=== PATIENT | female | born 1960 | race African-American/Black ===

== ENCOUNTER 2017-03-24 10:10 | Emergency (ER) | payer BC, OTHER ==
[2017-03-24 10:24] VITALS: BP 152/69; PULSE 61; TEMP 98.3; BMI 21.6
--- NOTE | 2017-03-24 11:27 | PDOC ---
History of Present Illness - General Chief Complaint: Injury Stated Complaint: LT FOOT PAIN Time Seen by Provider: 03/24/17 10:42 History Source: Patient Exam Limitations: No Limitations - History of Present Illness Initial Comments: 03/24/17 11:10 CHIEF COMPLAINT: Pain to dorsum of left foot HISTORY OF PRESENT ILLNESS: Patient is a 56-year-old female, no significant medical history currently on no medication presents for left foot pain. Patient reports 2 weeks ago she dropped a small safe on her foot since with pain. There is no erythema, edema or deformity. Occurred: reports: other (2 weeks ago) Severity: Yes: mild Lower Extremity Pain Location: left: foot Lower Ext. Injury Location - Specific Injury Location Foot: left foot pain Extremity Pain Location - Extremity Pain Location Extremity Pain Locations: left: foot Past History - Past Medical History Allergies/Adverse Reactions: Allergies Allergy/AdvReac Type Severity Reaction Status Date / Time No Known Allergies Allergy Verified 03/24/17 10:20 Home Medications: Ambulatory Orders Ibuprofen [Motrin -] 600 mg PO QID #28 tablet 03/24/17 COPD: No Other medical history: DENIES. - Suicide/Smoking/Psychosocial Hx Smoking History: Current every day smoker Have you smoked in the past 12 months: Yes Number of Cigarettes Smoked Daily: 10 Information on smoking cessation initiated: No Hx Alcohol Use: No Review of Systems - Review of Systems Constitutional: No: Symptoms Reported Respiratory: No: Symptoms reported Cardiac (ROS): No: Symptoms Reported ABD/GI: No: Symptoms Reported Musculoskeletal: No: Joint Pain, Joint Swelling, Muscle Pain, Muscle Weakness, Joint Stiffness Integumentary: No: Symptoms Reported, Bruising, Erythema Neurological: No: Symptoms reported, Paresthesia, Tingling, Tremors All Other Systems: Reviewed and Negative *Physical Exam - Vital Signs Last Vital Signs Temp Pulse Resp BP Pulse Ox 98.3 F 61 19 152/69 98 03/24/17 10:21 03/24/17 10:21 03/24/17 10:21 03/24/17 10:21 03/24/17 10:21 - Physical Exam General Appearance: Yes: Appropriately Dressed. No: Apparent Distress Neck: negative: Tender lateral, Tender midline Respiratory/Chest: positive: Lungs Clear, Normal Breath Sounds. negative: Respiratory Distress, Accessory Muscle Use Cardiovascular: positive: Regular Rhythm, Regular Rate Musculoskeletal: positive: Normal Inspection. negative: Decreased Range of Motion, Muscle Spasm, Vertebral Tenderness Extremity: positive: Normal Capillary Refill, Normal Inspection, Normal Range of Motion, Tender (to dorsum of the left foot. ). negative: Pedal Edema, Swelling, Erythema, Inflammation Integumentary: positive: Normal Color, Dry. negative: Erythema, Swelling, Ecchymosis, Bruising Neurologic: positive: Alert, Normal Mood/Affect, Normal Response, Motor Strength 5/5 ED Treatment Course - RADIOLOGY Radiology Studies Ordered: Category Date Time Status ANKLE & FOOT-LEFT* [RAD] Stat Radiology 03/24/17 10:41 Completed Medical Decision Making - Medical Decision Making 03/24/17 11:27 A/P: Patient with injury to foot 2 weeks ago still with pain x-ray demonstrated no acute fracture dislocation I have placed patient in Taurus wrap, will DC patient on Motrin supportive shoes, follow-up with orthopedics if pain persists I discussed the physical exam findings, ancillary test results and final diagnoses with the patient. I answered all of the patient's questions. The patient was satisfied with the care received and felt comfortable with the discharge plan and treatment plan. The patient will call to arrange follow-up and will return to the Emergency Department with any new, persistent or worsening symptoms. *DC/Admit/Observation/Transfer Diagnosis at time of Disposition: Foot injury Qualifiers: Encounter type: initial encounter Laterality: left Qualified Code(s): S99.922A - Unspecified injury of left foot, initial encounter - Discharge Dispostion Disposition: HOME Condition at time of disposition: Good Admit: No - Prescriptions Prescriptions: Ibuprofen [Motrin -] 600 mg PO QID #28 tablet - Referrals Referrals: Duncan Colbert MD [Staff Physician] - - Patient Instructions Additional Instructions: Ic e to foot Motrin for pain Well fitting shoes. Follow up with ortho if pain persists. - Post Discharge Activity
== END 2017-03-24 11:31 | disposition home or self-care (01) ==
LOC: JERFT 10:10
DX: S99.922A Unspecified injury of left foot, initial encounter (principal); W22.8XXA Striking against or struck by other objects, initial encounter; Y93.89 Activity, other specified; Y92.9 Unspecified place or not applicable; F17.210 Nicotine dependence, cigarettes, uncomplicated
CPT/HCPCS: 73610-TC-LT; 73630-TC-LT; 99281-25

== ENCOUNTER 2017-07-18 11:08 | Emergency (ER) | payer BC, OTHER ==
[2017-07-18 11:33] VITALS: TEMP 98.3; BMI 21.4
--- NOTE | 2017-07-18 12:43 | PDOC ---
History of Present Illness - General History Source: Patient Exam Limitations: No Limitations - History of Present Illness Initial Comments: 07/18/17 13:32 The patient is a 57 year old female, with a significant past medical history of anxiety, who presents to the emergency department with lightheadedness, chest pain, dizziness that started last night. She reports her chest pain has mostly resolved by ER arrival. She reports her chest pain last night was made worse with exertion, movement of her arms, and palpation. Patient states she's had bilateral numbness and weakness in her arms and legs, but she has been able to walk. She endorses subjective fevers, chills, nausea. Patient complains of pain in multiple joints, including her hips legs, shoulders and back. Denies trauma. The patient ranks her pain a 7/10 in pain intensity. She denies recent nausea, vomit, diarrhea or constipation. She denies recent dysuria, frequency, urgency or hematuria. She denies recent shortness of breath. Allergies: NKA Past surgical history: None reported. Social history: Current Smoker. Denies EtOH use and recreational drug use. <Zackery Davila - Last Filed: 07/18/17 13:34> <Tariq Maxwell - Last Filed: 07/18/17 17:55> - General Chief Complaint: Lightheaded Stated Complaint: DIZZINESS,HIP PAIN Time Seen by Provider: 07/18/17 12:08 Past History <Zackery Davila - Last Filed: 07/18/17 13:34> - Past Medical History COPD: No Other medical history: DENIES. - Suicide/Smoking/Psychosocial Hx Smoking History: Current every day smoker Have you smoked in the past 12 months: Yes Number of Cigarettes Smoked Daily: 10 Information on smoking cessation initiated: No Hx Alcohol Use: No <Tariq Maxwell - Last Filed: 07/18/17 17:55> - Past Medical History Allergies/Adverse Reactions: Allergies Allergy/AdvReac Type Severity Reaction Status Date / Time No Known Allergies Allergy Verified 07/18/17 12:03 Home Medications: Ambulatory Orders NK [No Known Home Medication] 07/18/17 Review of Systems - Review of Systems Able to Perform ROS?: Yes Comments:: 07/18/17 13:32 A complete review of 10 out of 10 review of systems is taken and is negative apart from what is previously mentioned below and in the HPI. <Zackery Davila - Last Filed: 07/18/17 13:34> *Physical Exam - Vital Signs Last Vital Signs Temp Pulse Resp BP Pulse Ox 98.3 F 84 20 149/79 99 07/18/17 11:29 07/18/17 11:29 07/18/17 11:29 07/18/17 11:29 07/18/17 12:00 - Physical Exam Comments: 07/18/17 13:33 Vitals: Triage Vital signs reviewed General Appearance: no acute distress, well nourished well developed, Head: Atraumatic, normocephalic Neck: Supple;No Nuchal rigidity Chest Wall: Nontender Cardiac: Regular rate and rhythm, no murmurs, no rubs, no gallops, Lungs: Clear to auscultation bilateral, good air movement bilaterally, Abdomen: Soft, nondistended, normal bowel sounds, nontender to palpation Extremities: Full range of motion to all extremities, no cyanosis, clubbing, or edema Skin: Warm and dry, no rashes or lesions, no petechiae Neuro: AOX3; Cranial Nerves 2-12 grossly c intact, Strength intact to all extremities, Sensation intact to all extremities, gait normal Psych: normal mood, normal affect <Zackery Davila - Last Filed: 07/18/17 13:34> - Vital Signs Last Vital Signs Temp Pulse Resp BP Pulse Ox 98.3 F 84 20 149/79 99 07/18/17 11:29 07/18/17 11:29 07/18/17 11:29 07/18/17 11:29 07/18/17 12:00 <Tariq Maxwell - Last Filed: 07/18/17 17:55> ED Treatment Course - LABORATORY CBC & Chemistry Diagram: 07/18/17 13:25 07/18/17 13:25 <Zackery Davila - Last Filed: 07/18/17 13:34> - LABORATORY CBC & Chemistry Diagram: 07/18/17 13:25 07/18/17 13:25 <Tariq Maxwell - Last Filed: 07/18/17 17:55> Medical Decision Making - Medical Decision Making 07/18/17 13:33 The patient is a 57 year old female, with a significant past medical history of anxiety, who presents to the emergency department with lightheadedness, chest pain, dizziness that started last night. She reports her chest pain has mostly resolved by ER arrival. Plan: 1.CBC 2.Cardiac profile 3.PT/INR 4.UA 5.EKG 6.Chest X-Ray <Zackery Davila - Last Filed: 07/18/17 13:34> - Medical Decision Making Atypical chest discomfort heart score 3 nonischemic EKG troponin negative times one given that pain was yesterday her risk of MACE is less than 1.6% Patient advised follow-up with her primary care provider in 1-2 days she has a nonfocal neurologic examination Findings, need follow-up, strict return instructions discussed patient. Pt. seen with resident Dr. Pinto <Tariq Maxwell - Last Filed: 07/18/17 17:55> *DC/Admit/Observation/Transfer - Attestations Scribe Attestion: 07/18/17 13:33 Documentation prepared by Zackery Davila, acting as director medical for Tariq Maxwell MD. <Zackery Davila - Last Filed: 07/18/17 13:34> <Tariq Maxwell - Last Filed: 07/18/17 17:55> Diagnosis at time of Disposition: Atypical chest pain - Discharge Dispostion Disposition: HOME Condition at time of disposition: Good - Patient Instructions Printed Discharge Instructions: DI for Atypical Chest Pain Additional Instructions: Please return if you have any new, worsening or concerning symptoms. Please follow up with your primary care physician this week. - Post Discharge Activity Forms/Work/School Notes: Back to Work
--- NOTE | 2017-07-18 13:09 | PDOC ---
History of Present Illness - General Chief Complaint: Lightheaded Stated Complaint: DIZZINESS,HIP PAIN Time Seen by Provider: 07/18/17 12:08 History Source: Patient Exam Limitations: No Limitations - History of Present Illness Initial Comments: 07/18/17 13:01 Patient is a 57F with history of tobacco abuse here today complaining of chest pain with associated dizziness that started last night. She states that her chest pain has resolved now, but her chest pain was worsened with exertion, movement of her arms, and palpation. It was relieved with rest. Patient states she's had bilateral numbness and weakness in her arms and legs, but she has been able to walk. She endorses subjective fevers, chills, nausea. Denies vomiting. Denies leg swelling, history of blood clots. Patient complains of pain in multiple joints, including her hips legs, shoulders and back. Denies trauma. Past History - Past Medical History Allergies/Adverse Reactions: Allergies Allergy/AdvReac Type Severity Reaction Status Date / Time No Known Allergies Allergy Verified 07/18/17 12:03 Home Medications: Ambulatory Orders NK [No Known Home Medication] 07/18/17 COPD: No Other medical history: DENIES. - Suicide/Smoking/Psychosocial Hx Smoking History: Current every day smoker Have you smoked in the past 12 months: Yes Number of Cigarettes Smoked Daily: 10 Information on smoking cessation initiated: No Hx Alcohol Use: No Review of Systems - Review of Systems Comments:: 07/18/17 13:06 GENERAL/CONSTITUTIONAL: No fever or chills. No weakness. HEAD, EYES, EARS, NOSE AND THROAT: No change in vision. No sore throat. CARDIOVASCULAR: Positive for chest pain and shortness of breath RESPIRATORY: Positive for cough. Negative for wheezing, or hemoptysis. GASTROINTESTINAL: Positive for nausea. Negative for vomiting, diarrhea or constipation. GENITOURINARY: No dysuria, frequency, or change in urination. MUSCULOSKELETAL: Positive for diffuse joint or muscle swelling or pain. Positive for lower back pain. SKIN: No rash NEUROLOGIC: No headache, vertigo, loss of consciousness, or change in strength/ sensation. ENDOCRINE: No increased thirst. No abnormal weight change HEMATOLOGIC/LYMPHATIC: No anemia, easy bleeding, or history of blood clots. ALLERGIC/IMMUNOLOGIC: No hives or skin allergy. *Physical Exam - Vital Signs Last Vital Signs Temp Pulse Resp BP Pulse Ox 98.3 F 84 20 149/79 99 07/18/17 11:29 07/18/17 11:29 07/18/17 11:29 07/18/17 11:29 07/18/17 12:00 - Physical Exam Comments: 07/18/17 13:10 GENERAL: Awake, alert, and fully oriented, in no acute distress HEAD: No signs of trauma, normocephalic, atraumatic EYES: PERRLA, EOMI, sclera anicteric, conjunctiva clear ENT: Auricles normal inspection, hearing grossly normal, nares patent, oropharynx clear without exudates. Moist mucosa NECK: Normal ROM, supple, no lymphadenopathy, JVD, or masses LUNGS: No distress, speaks full sentences, clear to auscultation bilaterally HEART: Regular rate and rhythm, normal S1 and S2, no murmurs, rubs or gallops, peripheral pulses normal and equal bilaterally. EXTREMITIES: Normal inspection, Normal range of motion, no edema. No clubbing or cyanosis. NEUROLOGICAL: Cranial nerves II through XII grossly intact. Normal speech, normal gait, no focal sensorimotor deficits SKIN: Warm, Dry, normal turgor, no rashes or lesions noted. Heart Score/ECG Review - History History: Slightly suspicious - Electrocardiogram EKG: Normal - Age Age: 45-65 - Risk Factors Risk Factors Heart Score: Yes Smoking History Based on the list above the patient has:: 1-2 risk factors - Troponin Troponin: </= normal limit - Score Heart Score - Total: 2 ED Treatment Course - LABORATORY CBC & Chemistry Diagram: 07/18/17 13:25 07/18/17 13:25 - RADIOLOGY Radiology Studies Ordered: Category Date Time Status CHEST PA & LAT [RAD] Stat Radiology 07/18/17 12:34 Ordered Medical Decision Making - Medical Decision Making 07/18/17 13:10 Patient is 57F with history of tobacco abuse here today complaining of chest pain. Vital signs stable and normal. Chest pain started last night, now resolved. Story is atypical. Will evaluate with cbc, cmp, trop, ekg, pt/inr, cxr , ua. EKG shows normal sinus rhythm with normal rate. No st elevations/depressions. No significant t wave abnormalities. Normal QRS/VA/QTc intervals. 07/18/17 14:37 Laboratory Tests 03/07/18/17 07/18/17 13:25 13:25 13:25 WBC 6.7 D Hgb 13.3 Hct 39.8 Plt Count 220 D INR 1.12 BUN 15 Creatinine 0.7 Creat Clearance w eGFR > 60 Troponin I < 0.02 CBC normal, CMP reassuring. INR normal. Troponin undetectable. 07/18/17 14:56 UA negative. Will discharge with return precautions and PCP follow up. 07/18/17 15:04 Patient now complaining of bilateral leg numbess from hip to knee, but ambulatory without pain and has some sensation. Asking for work note. Discharged with return precautions. *DC/Admit/Observation/Transfer Diagnosis at time of Disposition: Atypical chest pain - Discharge Dispostion Disposition: HOME Condition at time of disposition: Good Admit: No - Referrals - Patient Instructions Printed Discharge Instructions: DI for Atypical Chest Pain Additional Instructions: Please return if you have any new, worsening or concerning symptoms. Please follow up with your primary care physician this week. - Post Discharge Activity Forms/Work/School Notes: Back to Work
[2017-07-18 13:37] LABS: BASO % 0.8 % (0-2.0); EOS % 0.2 % (0-4.5); HEMATOCRIT 39.8 % (32.4-45.2); HEMOGLOBIN 13.3 GM/dL (10.7-15.3); LYMPH % 40.9 % (8-40); MCH 30.6 pg (25.7-33.7); MCHC 33.4 g/dl (32.0-36.0); MEAN CELL VOLUME 91.4 fl (80-96); MEAN PLT VOLUME 8.4 fl (7.5-11.1); MONO % 11.7 % (3.8-10.2); NEUT % 46.4 % (42.8-82.8); PLATELET COUNT 220 K/MM3 (134-434); RBC 4.35 M/mm3 (3.60-5.2); RDW 12.9 % (11.6-15.6); WHITE BLOOD COUNT 6.7 K/mm3 (4.0-10.0)
[2017-07-18 13:50] LABS: INR 1.12 (0.82-1.09); PROTHROMBIN TIME (PATIENT) 12.7 SEC (9.98-11.88)
[2017-07-18 13:58] LABS: ANION GAP 8 (8-16); BILIRUBIN,TOTAL 0.5 mg/dL (0.2-1.0); BLOOD UREA NITROGEN 15 mg/dL (7-18); CALCIUM 9.1 mg/dL (8.5-10.1); CHLORIDE 104 mmol/L (98-107); CO2 30 mmol/L (21-32); CREATININE 0.7 mg/dL (0.55-1.02); GLUCOSE,RANDOM 87 mg/dL (74-106); SGPT/ALT 20 U/L (12-78); SODIUM 142 mmol/L (136-145); TOT PROT 7.4 g/dl (6.4-8.2)
[2017-07-18 14:01] LABS: ALK PHOS 79 U/L (45-117)
[2017-07-18 14:03] LABS: MAGNESIUM 2.3 mg/dL (1.8-2.4); SGOT/AST 22 U/L (15-37)
[2017-07-18 14:07] LABS: URINE APPEARANCE SLCLOUDY; URINE BILIRUBIN NEGATIVE (<2.0 mg/dL); URINE BLOOD NEGATIVE (NEGATIVE); URINE COLOR STRAW; URINE GLUCOSE (UA) NEGATIVE (NEGATIVE); URINE KETONE TRACE (NEGATIVE); URINE LEUK ESTERASE NEGATIVE (NEGATIVE); URINE NITRITE NEGATIVE (NEGATIVE); URINE PROTEIN NEGATIVE (NEGATIVE); URINE UROBILINOGEN NEGATIVE mg/dL (0.2-1.0)
[2017-07-18 15:18] VITALS: BP 118/75; PULSE 72
--- NOTE | 2017-07-18 16:53 | EKG ---
Test Reason : Blood Pressure : / mmHG Vent. Rate : 071 BPM Atrial Rate : 071 BPM P-R Int : 134 ms QRS Dur : 084 ms QT Int : 368 ms P-R-T Axes : 075 051 029 degrees QTc Int : 399 ms NORMAL SINUS RHYTHM POSSIBLE LEFT ATRIAL ENLARGEMENT LEFT VENTRICULAR HYPERTROPHY ABNORMAL ECG WHEN COMPARED WITH ECG OF 19-JAN-2014 11:20, NO SIGNIFICANT CHANGE WAS FOUND Confirmed by MD Jessie, Atul ([id number]) on 07/18/2017 4:53:35 PM Referred By: Confirmed By:Atul Roman MD
== END 2017-07-18 15:18 | disposition home or self-care (01) ==
LOC: JER 11:08
DX: R07.89 Other chest pain (principal); F41.9 Anxiety disorder, unspecified; F17.210 Nicotine dependence, cigarettes, uncomplicated
CPT/HCPCS: 36415; 71046-TC-FY; 80053; 81003; 82550; 83735; 84484; 85025; 85610; 93005; 93010; 99282-25

== ENCOUNTER 2020-03-31 10:35 | Emergency (ER) | payer BC ==
[2020-03-31 10:46] VITALS: BP 141/75; PULSE 63; BMI 19.8
[2020-03-31] MEDS ORDERED: ACETAMINOPHEN 500 MG TABLET (FP) PO ONE (11:41)
[2020-03-31] MEDS ORDERED: ACETAMINOPHEN 500 MG TABLET (FP) ONE (11:45)
== END 2020-03-31 12:20 | disposition home or self-care (01) ==
LOC: JERFT 10:35
DX: S83.91XA Sprain of unspecified site of right knee, initial encounter (principal)
CPT/HCPCS: 73562-TC-RT-FY; 99283-25

== ENCOUNTER 2020-12-17 18:56 | Emergency (ER) | payer BC ==
[2020-12-17 19:11] VITALS: TEMP 98.5; BMI 20.9
[2020-12-17] MEDS ORDERED: MECLIZINE HCL 25 MG TABLET (FP) PO ONE (20:25)
[2020-12-17] MEDS ORDERED: SODIUM CHLORIDE 0.9% 500 ML INFUS.BAG IV ONE (20:31)
[2020-12-17] MEDS ORDERED: MECLIZINE HCL 25 MG TABLET (FP) ONE (20:46)
[2020-12-17 21:31] LABS: EOS % 0.9 % (0-4.5); HEMOGLOBIN 13.5 GM/dL (10.7-15.3); LYMPH % 47.5 % (8-40); MCH 30.4 pg (25.7-33.7); MCHC 33.7 g/dl (32.0-36.0); MEAN CELL VOLUME 90.4 fl (80-96); MEAN PLT VOLUME 8.1 fl (7.5-11.1); MONO % 11.4 % (3.8-10.2); NEUT % 39.2 % (42.8-82.8); PLATELET COUNT 215 10^3/uL (134-434); RBC 4.42 M/mm3 (3.60-5.2); WHITE BLOOD COUNT 6.4 K/mm3 (4.0-10.0)
[2020-12-17 21:55] LABS: CHLORIDE 108 mmol/L (98-107); SODIUM 143 mmol/L (136-145)
[2020-12-17 21:57] LABS: CALCIUM 9.3 mg/dL (8.5-10.1)
[2020-12-17 21:58] LABS: ALBUMIN 3.8 g/dl (3.4-5.0); ANION GAP 5 MMOL/L (8-16); BLOOD UREA NITROGEN 14.3 mg/dL (7-18); CO2 31 mmol/L (21-32); GLUCOSE,RANDOM 82 mg/dL (74-106)
[2020-12-17 22:01] LABS: CREATININE 0.9 mg/dL (0.55-1.3); SGOT/AST 18 U/L (15-37); SGPT/ALT 23 U/L (13-61)
[2020-12-17 22:02] LABS: TOT PROT 7.5 g/dl (6.4-8.2)
[2020-12-17 22:04] LABS: ALK PHOS 72 U/L (45-117)
[2020-12-17 22:20] LABS: BILIRUBIN,TOTAL 0.4 mg/dL (0.2-1)
[2020-12-17] MEDS ORDERED: METOCLOPRAMIDE HCL INJECTION 10 MG/2 ML VIAL IVPUSH ONE (22:23)
[2020-12-17] MEDS ORDERED: METOCLOPRAMIDE HCL INJECTION 10 MG/2 ML VIAL ONE (22:33)
[2020-12-18 00:22] VITALS: BP 120/72; PULSE 51
== END 2020-12-18 00:25 | disposition home or self-care (01) ==
LOC: JER 18:56
PROC: 3E033NZ Introduction of Analgesics, Hypnotics, Sedatives into Peripheral Vein, Percutaneous Approach (ICD-10-PCS; principal; 2020-12-17)
DX: R42 Dizziness and giddiness (principal)
CPT/HCPCS: 36415; 70450-TC; 71046-TC-FY; 80053; 84484; 85025; 93005; 93010; 99284-25

== ENCOUNTER 2021-11-29 12:59 | Emergency (ER) | payer SELFPAY ==
[2021-11-29 13:29] VITALS: BMI 22.0
[2021-11-29 17:39] LABS: BASO % 0.8 % (0-2.0); EOS % 0.7 % (0-4.5); HEMATOCRIT 39.1 % (32.4-45.2); LYMPH % 45.1 % (8-40); MCH 30.1 pg (25.7-33.7); MCHC 33.2 g/dl (32.0-36.0); MEAN CELL VOLUME 90.6 fl (80-96); MONO % 9.1 % (3.8-10.2); NEUT % 44.3 % (42.8-82.8); PLATELET COUNT 223 10^3/uL (134-434); RBC 4.31 M/mm3 (3.60-5.2); RDW 13.1 % (11.6-15.6); WHITE BLOOD COUNT 7.3 K/mm3 (4.0-10.0)
[2021-11-29 17:44] LABS: EPI CELLS 31 /uL (0-25.1); HYALINE CASTS 4 /uL (0-3.1); PH,URINE 5.5 (5.0-8.0); URINE APPEARANCE CLOUDY; URINE BACTERIA 6308 /uL (0-1359); URINE BILIRUBIN 1+ (NEGATIVE); URINE COLOR DK YELLOW; URINE GLUCOSE (UA) NEGATIVE (NEGATIVE); URINE KETONE TRACE (NEGATIVE); URINE LEUK ESTERASE 1+ (NEGATIVE); URINE NITRITE POSITIVE (NEGATIVE); URINE PROTEIN NEGATIVE (NEGATIVE); URINE WBC 122 /uL (0-25.8)
[2021-11-29 17:57] LABS: ALBUMIN 3.9 g/dl (3.4-5.0); BLOOD UREA NITROGEN 13.3 mg/dL (7-18); CALCIUM 9.1 mg/dL (8.5-10.1)
[2021-11-29 17:58] VITALS: BP 161/74; PULSE 61; RESP 16; TEMP 97.6
[2021-11-29 18:00] LABS: CREATININE 0.7 mg/dL (0.55-1.3)
[2021-11-29 18:02] LABS: BILIRUBIN,TOTAL 0.4 mg/dL (0.2-1); TOT PROT 7.4 g/dl (6.4-8.2)
[2021-11-29 19:22] LABS: URINE RBC 55.7 /uL (0-23.9)
[2021-11-29 19:23] LABS: URINE CRYSTALS MANY /hpf
== END 2021-11-29 18:46 | disposition home or self-care (01) ==
LOC: JER 12:59
DX: N12 Tubulo-interstitial nephritis, not specified as acute or chronic (principal)
CPT/HCPCS: 36415; 71046-TC-FY; 80053; 81003; 83735; 84484; 85025; 87086; 87186; 93005; 93010; 99285-25